=== PATIENT | male | born 1960 | race Two or more races ===

== ENCOUNTER 2016-09-27 17:43 | Emergency (ER) | payer BC ==
[2016-09-27 17:48] VITALS: BMI 37.5
--- NOTE | 2016-09-27 17:53 | PDOC ---
Rapid Medical Evaluation Chief Complaint: Pain, Acute Time Seen by Provider: 09/27/16 17:48 Medical Evaluation: Allergies Allergy/AdvReac Type Severity Reaction Status Date / Time EGGPLANT Allergy Uncoded 09/27/16 17:49 Vital Signs Temp Pulse Resp BP Pulse Ox 98.2 F 64 18 144/83 99 09/27/16 17:45 09/27/16 17:45 09/27/16 17:45 09/27/16 17:45 09/27/16 17:45 09/27/16 17:52 RME Note: I have performed a brief, in-person evaluation of this patient . This patient presents with CC: right abd pain x today Pertinent PE findings are: VSS, no CVA tenderness I have ordered: UA, Labs The patient will proceed to ED for further evaluation.
[2016-09-27 18:46] LABS: BASOPHIL 0.4 % (0-2.0); EOSINOPHIL 2.7 % (0-4.5); MCH 27.6 pg (25.7-33.7); MCHC 33.2 g/dl (32.0-35.9); MEAN CELL VOLUME 83.3 fl (80-96); MEAN PLT VOLUME 8.7 fl (7.5-11.1); NEUTROPHILS 43.7 % (42.8-82.8); PLATELET COUNT 168 K/MM3 (134-434); RDW 13.7 % (11.9-15.9); WHITE BLOOD COUNT 4.9 K/mm3 (4.0-10.0)
[2016-09-27 18:47] LABS: URINE APPEARANCE CLEAR; URINE BILIRUBIN NEGATIVE (NEGATIVE); URINE BLOOD NEGATIVE (NEGATIVE); URINE COLOR STRAW; URINE GLUCOSE (UA) NEGATIVE (NEGATIVE); URINE KETONE NEGATIVE (NEGATIVE); URINE LEUK ESTERASE NEGATIVE (NEGATIVE); URINE NITRITE NEGATIVE (NEGATIVE); URINE PROTEIN NEGATIVE (NEGATIVE); URINE UROBILINOGEN NEGATIVE E.U./dl (0.2-1.0)
[2016-09-27 19:23] LABS: ALBUMIN 3.9 g/dl (3.4-5.0); BILIRUBIN,TOTAL 0.3 mg/dL (0.2-1.0); CALCIUM 9.1 mg/dL (8.5-10.1); CREATININE 1.3 mg/dL (0.7-1.3); TOT PROT 6.7 g/dl (6.4-8.2)
--- NOTE | 2016-09-27 20:19 | PDOC ---
History of Present Illness - General History Source: Patient Exam Limitations: No Limitations - History of Present Illness Initial Comments: 09/27/16 20:45 The patient is a 56 year old male with significant past medical history of hypertension who presents to the ED with right flank pain that began earlier this morning. Patient reports going to bed in his usual state of health last night when he woke up this morning and noted pain that radiates back and forth from his right flank to right lower quadrant. He denies dysuria, hematuria, urgency, or frequency. He also has complaints of nausea with little appetite and no vomiting or diarrhea. Patient states experiencing similar symptoms about 2-3 months ago that resolved on its own, however today it became more persistent today. The patient denies fever, chills, cough, SOB, chest pain, and palpitations. Allergies: NKDA Social History: No alcohol, tobacco, or drug use reported. Past Surgical History: umbilical hernia repair PCP: None reported <Carey Kaplan - Last Filed: 09/27/16 20:45> - General History Source: Patient <Douglas Marquez - Last Filed: 09/27/16 23:29> - General Chief Complaint: Pain, Acute Stated Complaint: ABD PAIN/NAUSEA Time Seen by Provider: 09/27/16 17:48 Past History <Carey Kaplan - Last Filed: 09/27/16 20:45> - Past Medical History HTN: Yes - Surgical History Abdominal Surgery: (UMBILICAL HERNIA REPAIR) - Psycho/Social/Smoking Cessation Hx Suicidal Ideation: No Smoking History: Never smoked Hx Alcohol Use: No Drug/Substance Use Hx: No <Douglas Marquez - Last Filed: 09/27/16 23:29> - Past Medical History Allergies/Adverse Reactions: Allergies Allergy/AdvReac Type Severity Reaction Status Date / Time EGGPLANT Allergy Uncoded 09/27/16 17:49 Home Medications: Ambulatory Orders Ibuprofen 800 mg PO TID #30 tablet 09/27/16 Methocarbamol [Robaxin -] 750 mg PO Q8H #30 tablet 09/27/16 Nebivolol HCl [Bystolic] 10 mg PO DAILY 09/27/16 Oxycodone HCl/Acetaminophen [Percocet 5-325 mg Tablet] 1 - 2 tab PO Q6H #20 tablet MDD 4 09/27/16 Valsartan [Diovan] 160 mg PO DAILY 09/27/16 Review of Systems - Review of Systems Able to Perform ROS?: Yes Comments:: 09/27/16 20:45 CONSTITUTIONAL: +lack of appetite Absent: fever, no chills, no fatigue EYES: Absent: visual changes ENT: Absent: ear pain, no sore throat CARDIOVASCULAR: Absent: chest pain, no palpitations RESPIRATORY: Absent: cough, no SOB GI: +right lower quadrant pain, nausea Absent: no vomiting, no constipation, no diarrhea GENITOURINARY: +right flank pain Absent: dysuria, no frequency, no hematuria MUSCULOSKELETAL: Absent: back pain, no arthralgia, no myalgia SKIN: Absent: rash NEURO: Absent: headache <Carey Kaplan - Last Filed: 09/27/16 20:45> *Physical Exam - Vital Signs Last Vital Signs Temp Pulse Resp BP Pulse Ox 98.2 F 64 18 144/83 99 09/27/16 17:45 09/27/16 17:45 09/27/16 17:45 09/27/16 17:45 09/27/16 17:45 - Physical Exam Comments: 09/27/16 20:45 GENERAL: Well-appearing, well-nourished. No apparent distress. HEENT: Normocephalic, atraumatic. PERRL, EOM intact. CARDIOVASCULAR: Normal S1, S2. Regular rate and rhythm. PULMONARY: Clear to auscultation bilaterally. ABDOMEN: Soft, non-distended, right lower quadrant tenderness. No rebound or guarding. MUSCULOSKELETAL: Right flank tenderness. No CVA tenderness. EXTREMITIES: Normal ROM in all four extremities. No gross deformities. SKIN: Warm, dry. No rash NEUROLOGICAL: No focal neurological deficits. <Carey Kaplan - Last Filed: 09/27/16 20:45> - Vital Signs Last Vital Signs Temp Pulse Resp BP Pulse Ox 98.2 F 64 18 144/83 99 09/27/16 17:45 09/27/16 17:45 09/27/16 17:45 09/27/16 17:45 09/27/16 17:45 <Douglas Marquez - Last Filed: 09/27/16 23:29> ED Treatment Course - LABORATORY CBC & Chemistry Diagram: 09/27/16 18:38 09/27/16 18:30 - ADDITIONAL ORDERS Additional order review: Laboratory Results 09/27/16 09/27/16 18:30 17:50 Sodium 140 Potassium 4.0 Chloride 106 Carbon Dioxide 27 Anion Gap 7 L BUN 13 Creatinine 1.3 Creat Clearance w eGFR 56.90 Random Glucose 95 Calcium 9.1 Total Bilirubin 0.3 AST 21 ALT 44 Alkaline Phosphatase 49 Total Protein 6.7 Albumin 3.9 Total Amylase 40 Lipase 75 Urine Color Straw Urine Appearance Clear Urine pH 5.0 Ur Specific [place] 1.018 Urine Protein Negative Urine Glucose (UA) Negative Urine Ketones Negative Urine Blood Negative Urine Nitrite Negative Urine Bilirubin Negative Urine Urobilinogen Negative Ur Leukocyte Esterase Negative 09/27/16 18:38 RBC 5.15 MCV 83.3 MCHC 33.2 RDW 13.7 MPV 8.7 Neutrophils % 43.7 Lymphocytes % 44.0 H Monocytes % 9.2 Eosinophils % 2.7 Basophils % 0.4 <Carey Kaplan - Last Filed: 09/27/16 20:45> - LABORATORY CBC & Chemistry Diagram: 09/27/16 18:38 09/27/16 18:30 - ADDITIONAL ORDERS Additional order review: Laboratory Results 09/27/16 09/27/16 18:30 17:50 Sodium 140 Potassium 4.0 Chloride 106 Carbon Dioxide 27 Anion Gap 7 L BUN 13 Creatinine 1.3 Creat Clearance w eGFR 56.90 Random Glucose 95 Calcium 9.1 Total Bilirubin 0.3 AST 21 ALT 44 Alkaline Phosphatase 49 Total Protein 6.7 Albumin 3.9 Total Amylase 40 Lipase 75 Urine Color Straw Urine Appearance Clear Urine pH 5.0 Ur Specific [place] 1.018 Urine Protein Negative Urine Glucose (UA) Negative Urine Ketones Negative Urine Blood Negative Urine Nitrite Negative Urine Bilirubin Negative Urine Urobilinogen Negative Ur Leukocyte Esterase Negative 09/27/16 18:38 RBC 5.15 MCV 83.3 MCHC 33.2 RDW 13.7 MPV 8.7 Neutrophils % 43.7 Lymphocytes % 44.0 H Monocytes % 9.2 Eosinophils % 2.7 Basophils % 0.4 <Douglas Marquez - Last Filed: 09/27/16 23:29> Medical Decision Making - Medical Decision Making 09/27/16 23:29 Dr. Marquez: The scribe's documentation has been prepared under my direction and personally reviewed by me in its entirery. I confirm that the note above accurately reflects all work, treatment, procedures, and medical decision making performed by me. <Douglas Marquez - Last Filed: 09/27/16 23:29> *DC/Admit/Observation/Transfer - Attestations Scribe Attestion: 09/27/16 20:45 Documentation prepared by Carey Kaplan, acting as medical lab assistant for Douglas Marquez MD <Carey Kaplan - Last Filed: 09/27/16 20:45> - Discharge Dispostion Admit: No <Douglas Marquez - Last Filed: 09/27/16 23:29> Diagnosis at time of Disposition: Intervertebral disc herniation Qualifiers: Spinal region: thoracic Qualified Code(s): M51.24 - Other intervertebral disc displacement, thoracic region - Discharge Dispostion Disposition: HOME Condition at time of disposition: Stable - Referrals Referrals: Enrique Hale MD [Staff Physician] - - Patient Instructions Printed Discharge Instructions: DI for Herniated Disc Additional Instructions: Please follow up with your doctor or the doctor you were referred for MRI. Return if any problems
[2016-09-27 23:00] VITALS: BP 120/75; PULSE 61; TEMP 98.6
[2016-09-27] MEDS ORDERED: METHOCARBAMOL 500 MG TABLET PO ONE (23:27)
[2016-09-27] MEDS ORDERED: IBUPROFEN 400 MG TABLET (FP) PO ONE (23:27)
== END 2016-09-27 23:54 | disposition home or self-care (01) ==
LOC: JER 17:43
DX: M51.24 Other intervertebral disc displacement, thoracic region (principal)
CPT/HCPCS: 36415; 74176; 80053; 81003; 82150; 83690; 85025; 99284-25